=== PATIENT | female | born 1945 | race Caucasian/White ===

== ENCOUNTER 2019-12-04 01:56 | Day surgery (SDC) | payer OTHER, SELFPAY ==
[2019-11-27 14:34] VITALS: BMI 28.8
[2019-12-04 12:41] VITALS: BP 125/68; PULSE 62; RESP 20; TEMP 36.6; O2SAT 98
[2019-12-04] MEDS: LACTATED RINGERS 1,000 ML 150 ML IV CONT (12:55)
--- NOTE | 2019-12-04 12:59 | WPDANESEPPF ---
Anes - Initial Pre Proc Eval Procedure: Operation Date: 12/04/19 14:00 Proposed Procedures p Screening Colonoscopy - Patricio Thornton MD Date/Time: 12/04/19 12:59 Surgeon: Patricio Thornton MD Pre Op Diagnosis: Neoplasm Screening Patient Data Age: 73 Gender: F Height: 1.65 m Weight: 77.9 kg Last Vital Signs Temp 36.6 C 12/04/19 12:41 Pulse 62 12/04/19 12:41 Resp 20 12/04/19 12:41 BP 125/68 12/04/19 12:41 Pulse Ox 98 12/04/19 12:41 Allergies Allergy/AdvReac Type Severity Reaction Status Date / Time Sulfa (Sulfonamide Allergy Unknown unknown Verified 12/04/19 12:39 Antibiotics) Home Medications Medication Instructions Recorded Confirmed Type aripiprazole 5 mg tablet 5 mg PO DAILY 08/21/19 11/27/19 History aspirin 81 mg tablet,delayed 81 mg PO DAILY 08/21/19 11/27/19 History release citalopram 20 mg tablet 20 mg PO DAILY 08/21/19 11/27/19 History loratadine 10 mg tablet 10 mg PO DAILY 08/21/19 11/27/19 History tramadol 50 mg tablet 50 mg PO Q6H PRN 08/21/19 11/27/19 History travoprost 0.004 % eye drops 1 drop EACH EYE QPM 08/21/19 11/27/19 History triamcinolone acetonide 0.1 % 1 applic TOPICAL BID 08/21/19 11/27/19 History topical cream brexpiprazole 0.5 mg tablet 0.5 mg PO DAILY 10/22/19 11/27/19 History valbenazine 40 mg capsule 80 mg PO DAILY cap 10/22/19 11/27/19 History metoprolol tartrate 25 mg tablet 12.5 mg PO BID #30 tablet 10/28/19 11/27/19 Rx alprazolam 0.5 mg tablet 0.5 mg PO BID #60 tablet 11/10/19 11/27/19 Rx cholestyramine (with sugar) 4 gram 4 gm PO DAILY #378 gm 11/10/19 11/27/19 Rx oral powder primidone 50 mg tablet 50 mg PO QID #360 tablet 11/10/19 11/27/19 Rx Patient hx anesthesia problems: none Family hx anesthesia problems: none [facility] Past Medical History Medical History (Updated 12/03/19 @ 13:31 by Neal Sandhu DO) Adenomatous colon polyp Anxiety Depression GERD without esophagitis Glaucoma Hypertension PTSD (post-traumatic stress disorder) Surgical History Surgical History (Updated 12/03/19 @ 13:31 by Neal Sandhu DO) History of appendectomy S/P laparoscopic cholecystectomy Family History Family History (Updated 02/21/17 @ 15:26 by DOCTOR UNKNOWN) Sibling Family history of lung cancer Other Family history of malignant neoplasm Hypertension Social History Social History Smoking packs per day: 2.5 Smoking cigarettes per day: 50.0 Years smoked: 20 Smoking pack-years: 50.00 Smoking status: Former smoker Tobacco type: cigarettes Second hand tobacco smoke exposure: No Smoking end date: 10/01/74 Alcohol intake: never Substance use: never Substance use type: does not use Gender identity (if verbalized by the patient): Female Anes - Eval Final PreProcedure Day of Procedure 12/04/19 12:59 Patient weight: overweight Heart: regular rate and rhythm Lungs: clear to auscultation and normal air movement Airway: Mallampati scale class II Neurological: alert and oriented Last oral intake: >/= 8 hours ASA classification: III Emergent: no Anesthetic plan: proceed Anesthesia type and monitoring: general GIVS and standard monitoring Informed Consent: The patient's anesthetic plan and its attendant risks and benefits were discussed with the patient/family/POA. Questions were solicited and answers provided to the satisfaction of the patient/family/POA.
--- NOTE | 2019-12-04 13:36 | WPDHPUPDATE1 ---
History and Physical Update Update Date/Time: 12/04/19 13:36 History and Physical has been reviewed, including an updated exam of the patient. There are NO changes in the patient's condition. Risks, benefits, and alternatives have been discussed and questions answered. Patient agrees to proceed with procedure.
[2019-12-04 14:03] VITALS: BP 114/58; PULSE 63; RESP 13; O2SAT 99
[2019-12-04 14:13] VITALS: BP 125/65; PULSE 62; RESP 13; O2SAT 100
[2019-12-04 14:23] VITALS: BP 142/67; PULSE 58; RESP 14; O2SAT 99
== END 2019-12-04 14:42 | disposition home or self-care (01) ==
PROVIDERS: PCP Family Medicine; Visit Provider Internal Medicine Gastroenterology
PROC: 0DJD8ZZ Inspection of Lower Intestinal Tract, Via Natural or Artificial Opening Endoscopic (ICD-10-PCS; CPT 45378; principal; 2019-12-04 14:00)
DX: K52.831 Collagenous colitis (principal); K57.30 Diverticulosis of large intestine without perforation or abscess without bleeding; K64.8 Other hemorrhoids; Z86.010 Personal history of colon polyps; I10 Essential (primary) hypertension; K21.9 Gastro-esophageal reflux disease without esophagitis; F41.8 Other specified anxiety disorders; H40.9 Unspecified glaucoma; F43.10 Post-traumatic stress disorder, unspecified; Z79.82 Long term (current) use of aspirin; Z87.891 Personal history of nicotine dependence
CPT/HCPCS: 45380; 88305; J2704; J7120

== ENCOUNTER 2020-04-23 09:53 | Outpatient (CLI) | payer OTHER, SELFPAY ==
--- NOTE | ~2020-04-23 | MM_ITS ---
EXAMINATION: MM screening gabriela BI w alvaro HISTORY: Screening TECHNIQUE: Craniocaudal and mediolateral oblique 3-D tomosynthesis images were obtained and synthetic 2-D images were generated. CAD analysis was submitted and interpreted. COMPARISON: Comparison to multiple prior studies sequentially, with oldest reviewed study dated 02/17. BREAST PARENCHYMAL COMPOSITION: There are scattered areas of fibroglandular density. FINDINGS: There is a focal asymmetry in the subareolar location of the right breast. The left breast is stable without evidence for malignancy. IMPRESSION: 1. Focal asymmetry subareolar location of the right breast. 2. Additional mammographic views and possible breast ultrasound are recommended. BI-RADS Category 0: Incomplete: Needs additional imaging evaluation. Reviewed, dictated and finalized at location A. IMPRESSION: 1. Focal asymmetry subareolar location of the right breast. 2. Additional mammographic views and possible breast ultrasound are recommended . BI-RADS Category 0: Incomplete: Needs additional imaging evaluation.
== END 2020-04-23 09:54 | disposition home or self-care (01) ==
LOC: ANHIMG 09:56
PROVIDERS: PCP Family Medicine; Visit Provider Family Medicine
DX: Z12.31 Encounter for screening mammogram for malignant neoplasm of breast (principal); R92.8 Other abnormal and inconclusive findings on diagnostic imaging of breast
CPT/HCPCS: 77063; 77067

== ENCOUNTER 2020-05-17 10:48 | Outpatient (CLI) | payer OTHER, SELFPAY ==
--- NOTE | ~2020-05-17 | MMUS_ITS ---
EXAMINATION: MM diagnostic mammo unilat RT, US breast RT limited HISTORY: Focal asymmetry reported in subareolar right breast area on screening mammogram 04/23/2020 TECHNIQUE: Additional 3-D tomosynthesis images of the right breast were performed and synthetic 2-D i mages were generated. CAD analysis was submitted and interpreted. High resolution limited right breas t ultrasound at 9-1:00 was performed. COMPARISON: 04/23/2020 bilateral digital screening mammogram FINDINGS: MAMMOGRAPHIC FINDINGS: No suspicious reproducible mass or architectural distortion is evident. There are scattered benign pu nctate microcalcifications. ULTRASOUND: 10:00 1 cm from nipple: There is a 4.1 x 4.5 x 6.6 mm sonolucency with through transmission and poste rior enhancement, consistent with simple cyst. IMPRESSION: 1. Benign up to 6.6 mm cyst at 10:00 1 cm from nipple 2. Routine mammographic screening is recommended. BI-RADS Category 2: Benign finding(s). Reviewed, dictated and finalized at location A. IMPRESSION: 1. Benign up to 6.6 mm cyst at 10:00 1 cm from nipple 2. Routine mammographic screening is recommended. BI-RADS Category 2: Benign finding(s).
== END 2020-05-17 10:49 | disposition home or self-care (01) ==
LOC: ANHIMG 10:49
PROVIDERS: PCP Family Medicine; Visit Provider Family Medicine
DX: R92.8 Other abnormal and inconclusive findings on diagnostic imaging of breast (principal); R53.83 Other fatigue; N60.91 Unspecified benign mammary dysplasia of right breast; N60.92 Unspecified benign mammary dysplasia of left breast; N95.2 Postmenopausal atrophic vaginitis
CPT/HCPCS: 76642; 77065

== ENCOUNTER → 2021-01-25 13:10 | Outpatient (CLI) | payer OTHER, SELFPAY ==
--- NOTE | ~2021-01-25 | CT_ITS ---
EXAMINATION: CT brain wo con DATE: 01/25/2021 13:39 INDICATION: Lower extremity weakness. TECHNIQUE: Computed tomography (CT) of the head was performed without intravenous contrast. The mA wa s adjusted according to patient size. Iterative reconstruction technique was employed. The dose-lengt h product was 599.57 mGy-cm. 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 There are scattered areas of low attenuation in the cerebral white matter. There is no intracranial hemorrhage, acute infarction, or abnormal intr acranial mass lesion. The ventricles are normal in size. There is mild mucosal thickening in the para nasal sinuses. There are likely changes of ocular lens replacement surgeries. The mastoid air cells a re normal. IMPRESSION: 1. 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 2. Moderate nonspecific cerebral white matter disease, which likely represents chronic small vessel i schemic disease. Reviewed, dictated and finalized at location A. IMPRESSION: 1. 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 2. Moderate nonspecific cerebral white matter disease, which likely represents chronic small vessel ischemic disease.
== END ==
PROVIDERS: PCP Family Medicine; Visit Provider Family Medicine
DX: R26.89 Other abnormalities of gait and mobility (principal); R29.898 Other symptoms and signs involving the musculoskeletal system; W19.XXXA Unspecified fall, initial encounter; Z86.73 Personal history of transient ischemic attack (TIA), and cerebral infarction without residual deficits; R90.82 White matter disease, unspecified
CPT/HCPCS: 70450

== ENCOUNTER 2022-06-20 15:12 | Outpatient (CLI) | payer OTHER, SELFPAY ==
--- NOTE | ~2022-06-20 | DEXA_ITS ---
Bone Density Report Name: JENNIFER VALENCIA Age: 76 Sex: Female Ethnicity: White Date of : 1945 Indication: postmenopausal; screening for osteoporosis; height loss; hysterectomy; Referring Provider: ZOË ARAIZA Study: Bone densitometry was performed. Exam Date: June 20, 2022 Accession number: [id number] Bone Density: Region BMD T-score Z-score Classification AP Spine(L1-L4) 0.898 -1.4 1.2 Osteopenia Femoral Neck (Left) 0.688 -1.4 0.7 Osteopenia Total Hip (Left) 0.945 0.0 1.9 Normal Femoral Neck (Right) 0.728 -1.1 1.1 Osteopenia Total Hip (Right) 0.923 -0.2 1.8 Normal Total Hip Mean 0.934 -0.1 1.9 Normal World Health Organization criteria for BMD impression classify patients as: Normal (T-score at or above -1.0), Osteopenia (T-score between -1.0 and -2.5), or Osteoporosis (T-score at or below -2.5). 10-year Fracture Risk(1): Major Osteoporotic Fracture 12% Hip Fracture 2.4% Reported Risk Factors: [place] (), Neck BMD=0.688, BMI=31.9 (1) FRAX(R) Version 3.08. Fracture probability calculated for an untreated patient. Fracture probability may be lower if the patient has received treatment. Clinical Information Provided by Patient: Has the following medical conditions: Hysterectomy Patient maximum height was 67 Menopause Age: 39 No regular weight bearing exercise Drinks caffeinated beverages Onset of menses at age 13 Number of children 3 Impression: The patient has low bone mass, based on the Total Spine T-score. The patient has an estimated ten-year risk of hip fracture of 2.4% and an estimated ten-year risk of major fracture of 12%, based on the WHO FRAX algorithm. Discussion: BONE DENSITY IS LOW AT ONE OR MORE SKELETAL SITES. This patient's lowest T-score is low at one or more skeletal sites. It meets the World Health Organization's (WHO) criteria for ?low bone mass? (T-score between -1.0 and -2.5). The patient's 10-year risk of fracture as calculated by FRAX is less than the threshold where pharmacological therapy is recommended by the National Osteoporosis Foundation (NOF). However, all treatment decisions require clinical judgment and consideration of individual patient factors, including patient preferences, comorbidities, previous drug use, risk factors not captured in the FRAX model (e.g., frailty, falls, vitamin D deficiency, increased bone turnover, interval significant decline in bone density) and possible under or overestimation of fracture risk by FRAX. The patient should follow a healthful lifestyle (good nutrition with adequate calcium and vitamin D, and appropriate weight-bearing exercise). Follow-Up: Consider repeating this study in 2 to 3 years to reassess this patient's status, or sooner if there is some new clinical indication.
== END 2022-06-20 15:13 | disposition home or self-care (01) ==
PROVIDERS: PCP Family Medicine; Visit Provider Physician Assistant
DX: Z78.0 Asymptomatic menopausal state (principal); M85.88 Other specified disorders of bone density and structure, other site; M85.851 Other specified disorders of bone density and structure, right thigh; M85.852 Other specified disorders of bone density and structure, left thigh
CPT/HCPCS: 77080

== ENCOUNTER → 2022-10-11 13:10 | Outpatient (CLI) | payer OTHER, SELFPAY ==
--- NOTE | ~2022-10-11 | XR_ITS ---
EXAM: XR knee RT 3V, XR knee LT 3V DATE: 10/11/2022 14:00 HISTORY: M25.561 - Pain in right knee . COMPARISON: 03/12/2015. FINDINGS: Decreased mineralization. No fracture or dislocation. No lytic or blastic lesion. Severe b ilateral medial joint space narrowing. Moderate bilateral tricompartmental osteophytosis. No erosion or periosteal change. Soft tissues within normal limits. IMPRESSION: Bilateral tricompartmental osteoarthritis of the knees, severe in the medial compartments and worse in the right knee.. Reviewed, dictated and finalized at location K. S MGR IMPRESSION: Bilateral tricompartmental osteoarthritis of the knees, severe in t he medial compartments and worse in the right knee..
== END ==
PROVIDERS: PCP Physician Assistant; Visit Provider Physician Assistant
DX: M17.0 Bilateral primary osteoarthritis of knee (principal)
CPT/HCPCS: 73562

== ENCOUNTER 2025-05-05 15:36 | Outpatient (CLI) | payer OTHER, SELFPAY ==
--- NOTE | ~2025-05-05 | XR_ITS ---
EXAMINATION: XR shoulder RT min 2V DATE: 05/05/2025 15:58 INDICATION: Right shoulder pain TECHNIQUE: AP internally and externally rotated, AP oblique externally rotated and transscapular Y vi ews of the right shoulder were obtained. COMPARISON: None FINDINGS: Normal alignment. No fracture. Mild acromioclavicular osteoarthritis. Mild to moderate glenohumeral osteoarthritis. Visualized portion of the lungs are clear. Soft tissues are unremarkable. IMPRESSION: Mild right acromioclavicular and mild to moderate right glenohumeral osteoarthritis. Reviewed, dictated and finalized at location A. IMPRESSION: Mild right acromioclavicular and mild to moderate right glenohumeral osteoarthr itis.
--- OUTSIDE RECORDS SUMMARY | 2025-05-05 15:46 | XMS_ITS | Clinical Summary ---
Author Organization [facility] Address [address] [place] [address] Care Team Providers Care Cell Inspector Name Role Phone Toi Mendez MD Primary Care Provider [phone] Allergies Active Allergy Reactions Criticality Noted Date Comments Sulfasalazine Unknown Medications tamoxifen (NOLVADEX) 20 mg tablet Take 20 mg by mouth. 10/11/2017 Active metoprolol tartrate (LOPRESSOR) 50 mg tablet Take 25 mg by mouth. Active primidone (MYSOLINE) 50 mg tablet 50 mg. 07/24/2016 Active traMADol (ULTRAM) 50 mg tablet 07/19/2015 Active travoprost (TRAVATAN Z) 0.004 % solution Place in affected eye(s). Active ALPRAZolam (XANAX) 0.25 mg tablet Take 0.25 mg by mouth 3 times daily with meals. 04/10/2018 Active aspirin (ECOTRIN EC) 81 mg Tablet, Delayed Release (E.C.) Take 81 mg by mouth daily. Active citalopram (CeleXA) 10 mg tablet Take by mouth. 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 Gender Identity Not on file Sexual Orientation Not on file Last Filed Vital Signs Vital Sign Reading Time Taken Comments Blood Pressure 142/91 04/25/2019 11:51 AM CDT Pulse 49 04/26/2018 11:36 AM CDT Temperature 36.1 C (97 F) 04/25/2019 11:51 AM CDT Respiratory Rate - - Oxygen Saturation 98% 04/25/2019 11:51 AM CDT Inhaled Oxygen Concentration - - Weight 76.3 kg (168 lb 4.8 oz) 04/25/2019 11:51 AM CDT Height 165.1 cm (5' 5) 04/25/2019 11:51 AM CDT Body Mass Index 28.01 04/25/2019 11:51 AM CDT Plan of Treatment Health Maintenance Due Date Last Done Comments DTAP/TDAP/TD VACCINES (1 - Tdap) 12/31/1963 PNEUMOCOCCAL VACCINE 50+ YEARS (1 of 1 - PCV) 12/30/18 95 ZOSTER VACCINE (1 of 2) 1994 OSTEOPOROSIS SCREENING 2009 RSV VACCINE (60+ or ) (1 - 1-dose 75+ series) 12/31/2019 INFLUENZA VACCINE (#1) 2025 Insurance Care Teams Cell Inspector Relationship Specialty Start Date End Date Toi Mendez MD [address] [facility] [address] [place] [address] PCP - General Family Practice 04/10/18
--- OUTSIDE RECORDS SUMMARY | 2025-05-05 15:46 | XMS_ITS | Clinical Summary ---
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 Gender Identity Not on file Sexual Orientation Not on file Plan of Treatment Health Maintenance Due Date Last Done Comments DTaP, Tdap and Td Vaccines ( 1 - Tdap) 12/31/1963 Pneumococcal Vaccine: 50+ Ye ars (1 of 1 - PCV) 1994 Zoster Vaccines (1 of 2) 1994 Dexa Scan (General) 2009 RSV Immunization or 60+ Years (1 - 1-dose 75+ series) 12/31/2019 COVID-19 Vaccine (2023-2 5 season) 2024 Meningococcal B Vaccine Aged Out No l onger eligible based on patient's age to complete this topic Meningococcal Vaccine Aged Out No linda vaibhav eligible based on patient's age to complete this topic RSV Immunizations Under 20 Months Aged Out No longer eligible based on patient's age to complete this topic
--- OUTSIDE RECORDS SUMMARY | 2025-05-05 15:46 | XMS_ITS | Clinical Summary ---
Author Organization [facility] Address [address], [facility] [address] [place] [address] Phone Care Team Providers Care Ostomy Rn Name Role Phone Toi Mendez MD Primary Care Provider Allergies Active Allergy Reactions Criticality Noted Date Comments Sulfa Antibiotics Unknown Medications ALPRAZolam (XANAX) 0.5 MG Tablet 06/28/2015 Active Travoprost, NGUYEN Free, (TRAVATAN Z) 0.004 % Solution Place in affected eye(s). Active primidone (MYSOLINE) 50 MG Tablet 50 mg. 50mg tablet, 5 tabs a day 07/24/2016 Active citalopram (CELEXA) 20 MG Tablet Take 20 mg by mouth daily. Active busPIRone (BUSPAR) 5 MG Tablet Take 5 mg by mouth 3 times daily. Active ELIQUIS 5 MG Tablet Take 5 mg by mouth daily. 04/13/2020 Active Brexpiprazole (REXULTI) 0.5 MG Tablet Take 0.5 mg by mouth daily. 04/12/2020 Active Deutetrabenazin e (AUSTEDO) 9 MG Tablet Take 1 Tab by mouth daily. 04/01/2020 Active metoprolol tartrate (LOPRESSOR) 25 MG Tablet Take 12.5 mg by mouth 2 times daily. 04/04/2020 Active Mirabegron ER (MYRBETRIQ) 25 MG TABLET SR 24 HR Take 1 Tab by mouth daily. 03/24/2020 Active Active Problems Problem Noted Date Diagnosed Date Fatigue 04/11/2018 Vaginal atrophy 01/27/2016 Atypical ductal hyperplasia of both breasts 07/02 Resolved Problems Problem Noted Date Diagnosed Date Resolved Date Vaginal bleeding 07/29/2015 01/27/2016 Family History Medical History Relation Name Comments Lung Cancer Brother Diabetes Other 1 Heart Disease Other 2 Hypertension Other 3 Other-comment Other 4 3 brothers and a sister with breast biopsy but no fam hx of breast ca Relation Name Status Comments Brother Other 1 Other 2 Other 3 Other 4 Social History Tobacco Use Types Packs/Day Years Used Date Smoking Tobacco: Former Smokeless Tobacco: Never Tobacco Cessation:Counseling Given: Yes Comments:quit 30-40 years ago Alcohol Use Standard Drinks/Week Comments Not Asked 0 (1 standard drink = 0.6 oz pur e alcohol) PHQ-2 Answer Date Recorded PHQ-2 Score 0 06/03/2019 Comments Unknown Sex and Gender Information Value Date Recorded Sex Assigned at Not on file Legal Sex Female 9:14 AM CDT Gender Identity Not on file Sexual Orientation Not on file Last Filed Vital Signs Vital Sign Reading Time Taken Comments Blood Pressure 114/58 05/27/2020 1:22 PM CDT Pulse 48 05/27/2020 1:22 PM CDT Temperature 36.9 C (98.4 F) 05/27/2020 1:22 PM CDT Respiratory Rate 18 05/27/2020 1:22 PM CDT Oxygen Saturation 98% 05/27/2020 1:22 PM CDT Inhaled Oxygen Concentration - - Weight 82.6 kg (182 lb 3.2 oz) 05/27/2020 1:22 P M CDT Height 165.1 cm (5' 5) 10/10/2018 1:32 PM DRAWER IN 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 Body Mass Index 30.32 10/10/2018 1:32 PM DRAWER IN 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 Plan of Treatment Health Maintenance Due Date Last Done Comments Hepatitis C Virus (HCV) Screening 1945 TdaP Immunization 1945 Pneumococcal Immunization (50+ years) (1 of 1 - PCV) 1994 Zoster Immunization (2 of 3) 04/15/2014 02/18/2014 Respiratory Syncytial Virus (RSV) Immunization (Adult) (1 - 1-dose 75+ series) 12/31/2019 SARS-COV-2 Immunization (1 - 2023-25 season) 2024 Influenza Immunization (#1) 2025 10/0 12/2018, 06/07/2018, 07/08/2017, Additional history exists Hepatitis B Immunization Aged Out No longer eligible based on patient's age to complete this topic Human Papillomavirus (HPV) Immunization Aged Out No longer eligible based on patient's age to complete this topic Meningococcal Immunization (ACWY) Aged Out No longer eligible based on patient's age to complete this topic Rotavirus Immunization Aged Out No lo nger eligible based on patient's age to complete this topic Insurance MEDICARE C [employer] Care Teams Ostomy Rn Relationship Specialty Start Date End Date Toi Mendez MD [address] [place] [address] PCP - General Family Medicine 07/27/15
== END 2025-05-05 15:37 | disposition home or self-care (01) ==
PROVIDERS: PCP Family Medicine; Visit Provider Family Medicine
DX: M19.011 Primary osteoarthritis, right shoulder (principal)
CPT/HCPCS: 73030